=== PATIENT | male | born 1960 | race Caucasian/White ===

== ENCOUNTER 2018-07-31 21:43 | Emergency (ER) | payer OTHER ==
[~2018-07-31] VITALS: Ht 172.7 cm; Wt 96.6 kg
[2018-07-31 21:48] VITALS: BP 131/78
[2018-07-31] MEDS ORDERED: ALBU0.0912 INH (21:51)
--- NOTE | 2018-07-31 21:52 | NUR ---
PT AMBULATED TO BED 9
--- NOTE | 2018-07-31 22:02 | NUR ---
PT PRESENTS TO ED WITH C/O SOB AND COUGH X 1 WEEK. LUNG SOUNDS CLEAR BILATERAL UPON ASUCULTATION. PT REPORTS PRODUCTIVE COUGH X 1 WEEK. PT DENIES CP. PT PLACED INTO BED, PENDING MD BRASWELL. PMH--ASTHMA RX---SINGULAR
[2018-07-31] MEDS ORDERED: predniSONE 20 MG TAB PO ONE (22:25)
[2018-07-31 22:40] VITALS: BP 127/82
--- NOTE | 2018-07-31 22:40 | NUR ---
Patient discharged with v/s stable. Written and verbal after care instructions given and explained. Patient alert, oriented and verbalized understanding of instructions. Ambulatory with steady gait. All questions addressed prior to discharge. ID band removed. Patient advised to follow up with PMD. Rx of AZITHROMYCIN, ALBUTEROL, PREDNISONE was given. Patient educated on indication of medication including possible reaction and side effects. Opportunity to ask questions provided and answered.
== END 2018-07-31 22:40 | disposition home or self-care (01) ==
LOC: MED 21:43
DX: J20.9 Acute bronchitis, unspecified (principal); J45.909 Unspecified asthma, uncomplicated; Z79.899 Other long term (current) drug therapy
CPT/HCPCS: 71045; 99283; J7512; Q0092

== ENCOUNTER 2020-05-14 16:30 | Emergency (ER) | payer OTHER ==
[~2020-05-14] VITALS: Ht 172.7 cm; Wt 103.1 kg
[~2020-05-14 16:30] MED LIST: ALBU0.0912 INH
[2020-05-14 16:37] VITALS: BP 121/77
--- NOTE | 2020-05-14 16:50 | NUR ---
PATIENT PRESENTS TO ED WITH LEFT THUMB PAIN D/T WOOD CHIPS BEING STUCK IN FINGER FOR X3 WEEKS . 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 SORE AREA NOTED AT LEFT THUMB, SKIN INTACT. DENIES N/V/D; SKIN IS PINK/WARM/DRY; AAOX4 WITH EVEN AND STEADY GAIT; LUNGS CLEAR BL; HR EVEN AND REGULAR; PT DENIES ANY FEVER, CP, SOB, OR COUGH AT THIS TIME; PATIENT STATES PAIN OF 0/10 AT THIS TIME; VSS; PATIENT POSITIONED FOR COMFORT; HOB ELEVATED; BEDRAILS UP X2; BED DOWN. ER MD MADE AWARE OF PT STATUS.
[2020-05-14] MEDS ORDERED: LIDOCAINE 2% 100 MG/5 ML UJET TP ONE (17:55)
[2020-05-14] MEDS ORDERED: LIDOCAINE 2% 1000 MG/50 ML VIAL INJ ONE (17:55)
--- NOTE | 2020-05-14 18:00 | NUR ---
DR. NEIL AT BEDSIDE
[2020-05-14] MEDS ORDERED: BACITRACIN OINT 500 UNITS/GM PKT TP ONE (18:35)
[2020-05-14 19:03] VITALS: BP 121/77
--- NOTE | 2020-05-14 19:03 | NUR ---
Patient discharged with v/s stable. Written and verbal after care instructions given and explained. Patient alert, oriented and verbalized understanding of instructions. Ambulatory with steady gait. All questions addressed prior to discharge. ID band removed. Patient advised to follow up with PMD. Rx of KEFLEX & BACITRACIN given. Patient educated on indication of medication including possible reaction and side effects. Opportunity to ask questions provided and answered.
== END 2020-05-14 19:03 | disposition home or self-care (01) ==
LOC: MED 16:30
DX: S60.352A Superficial foreign body of left thumb, initial encounter (principal); L02.512 Cutaneous abscess of left hand; J45.909 Unspecified asthma, uncomplicated; Z90.5 Acquired absence of kidney; Z85.9 Personal history of malignant neoplasm, unspecified; Z79.899 Other long term (current) drug therapy; X58.XXXA Exposure to other specified factors, initial encounter; Y93.89 Activity, other specified; Y92.89 Other specified places as the place of occurrence of the external cause; Y99.8 Other external cause status
CPT/HCPCS: 10120; 73140; 90471; 90715; 99285; J2001; 99284

== ENCOUNTER 2023-09-16 16:47 | Emergency (ER) | payer OTHER ==
[~2023-09-16] VITALS: Ht 172.7 cm; Wt 101.6 kg
[2023-09-16 16:51] VITALS: BP 135/79; PULSE 73; RESP 16; TEMP 97.9; O2SAT 96
[2023-09-16] MEDS ORDERED: LIDOCAINE MPF 1% 5 ML ONE (21:33)
[2023-09-16] MEDS: LIDOCAINE MPF 1% 10 MG/ML VIAL INJ ONE (21:41)
== END 2023-09-16 22:16 | disposition home or self-care (01) ==
LOC: MED 16:47
DX: S60.457A Superficial foreign body of left little finger, initial encounter (principal); J45.909 Unspecified asthma, uncomplicated; Z79.899 Other long term (current) drug therapy; W45.8XXA Other foreign body or object entering through skin, initial encounter; Y92.89 Other specified places as the place of occurrence of the external cause; Y93.89 Activity, other specified; Y99.8 Other external cause status
CPT/HCPCS: 10120; 73130; 99285; J2001; 12001; 99284

== ENCOUNTER 2023-10-16 14:39 | Emergency (ER) | payer OTHER ==
[~2023-10-16] VITALS: Ht 172.7 cm; Wt 102.1 kg
[2023-10-16 14:50] VITALS: BP 111/72; PULSE 88; RESP 18; TEMP 98.7; O2SAT 95
[2023-10-16] MEDS ORDERED: PRED20TA5 PO (15:15)
[2023-10-16] MEDS ORDERED: DIPH25TA53 PO (15:15)
[2023-10-16 15:20] VITALS: BP 121/70; PULSE 88; RESP 16; TEMP 98.7; O2SAT 99
== END 2023-10-16 15:43 | disposition home or self-care (01) ==
LOC: MED 14:39
DX: R21 Rash and other nonspecific skin eruption (principal); L29.9 Pruritus, unspecified; J45.909 Unspecified asthma, uncomplicated; Z98.890 Other specified postprocedural states; Z79.899 Other long term (current) drug therapy
CPT/HCPCS: 99283